=== PATIENT | female | born 1985 | race Caucasian/White ===

== ENCOUNTER 2020-04-21 14:22 | Emergency (ER) | payer MEDICAID, OTHER ==
[2020-04-21 14:57] VITALS: BP 119/69
[2020-04-21] MEDS ORDERED: BUFFERED LIDOCAINE 10 ML SYRINGE SUBQ STA (16:07)
--- NOTE | 2020-04-21 16:23 | ED Physician Documentation ---
History of Present Illness - Stated complaint Stated Complaint: WOUND ON SHOULDER - Chief complaint Chief Complaint: Wound - History obtained from History obtained from: Patient - Additonal information Additional information: 34-year-old female presents the emergency department with 4 days of what she believes is a right axillary abscess. She reports that it started as a pimple but has gotten progressively larger and more painful. Today it began having a small amount of purulent drainage. She does report a history of abscesses in the past also in the right axilla. She has had no fevers. Tetanus is up-to-date. PD PAST MEDICAL HISTORY - Past Medical History Past Medical History: Yes - Past Surgical History Past Surgical History: No - Present Medications Home Medications: Ambulatory Orders Medication Instructions Recorded Confirmed Ibuprofen [Motrin] 400 mg PO Q8H PRN 01/08/15 01/08/15 Cephalexin 500 mg PO Q6HR #39 capsule 01/09/15 HYDROcod/ACETAM 5/325 [Vicodin 1 - 2 ea PO Q6H PRN #15 tablet 01/09/15 5/325] Sulfamethoxazole/Trimethoprim 1 each PO BID #19 tablet 01/09/15 [Bactrim Ds Tablet] Hydrocodone/Acetaminophen [[place] 1 each PO BID PRN #5 tablet 04/21/20 5-325 Tablet] Sulfamethox/Trimeth 800/160 1 each PO BID #14 tablet 04/21/20 [Bactrim Ds 800/160] - Allergies Allergies/Adverse Reactions: Allergies Allergy/AdvReac Type Severity Reaction Status Date / Time No Known Drug Allergies Allergy Verified 10/13/12 12:38 - Social History Does the pt smoke?: Yes Smoking Status: Current every day smoker Does the pt drink ETOH?: No Does the pt have substance abuse?: No - Immunizations Immunizations are current?: Yes - POLST Patient has POLST: No PD ED PE EXPANDED - General General: Alert, No acute distress, Well developed/nourished - Extremities Extremities: Other (1 x 4 cm area of induration without fluctuance noted in the right lower axilla.) Results - Vitals Vitals: Vital Signs - 24 hr 04/21/20 14:52 Temperature 36.9 C Heart Rate 77 Respiratory 14 Rate Blood Pressure 119/69 O2 Saturation 100 Oxygen O2 Source Room air Procedures - Abscess I&D (location) right axilla Preparation: Betadine, Lidocaine 1% Incision: Incised with scalpel, Purulent drainage, Loculations broken, Irrigated, Packed Other: Pt tolerated well, Antibiotic prescribed PD MEDICAL DECISION MAKING - ED course Complexity details: re-evaluated patient, considered differential, d/w patient ED course: 34-year-old female presents to the emergency department for evaluation of 4 days of right axilla abscess. Initially began as a small pimple that has slowly spread to become a large area of erythema and induration. The no fluctuance was felt with palpation incision and drainage did yield a moderate amount of purulent fluid. A culture was obtained. We will start her on Bactrim for suspected MRSA and will have her return in 48 hours for wound check if not better. Patient advised to have the packing removed in 24 to 48 hours. Departure - Departure Disposition: 01 Home, Self Care Clinical Impression: Abscess of axilla, right Condition: Stable Record reviewed to determine appropriate education?: Yes Instructions: ED Abscess IandD Prescriptions: Sulfamethox/Trimeth 800/160 [Bactrim Ds 800/160] 1 each PO BID #14 tablet Hydrocodone/Acetaminophen [[place] 5-325 Tablet] 1 each PO BID PRN #5 tablet PRN Reason: Pain Comments: Blanca the abscess has been drained. However you do need to start taking the antibiotics. With the antibiotics I would expect improved pain swelling and redness over the next 36 to 48 hours. If not improving or getting worse please return to the emergency department. I have placed a small amount of shoestring packing into the abscess. This should be removed in 24 to 48 hours. If you are unable to remove it at home it may be done at any urgent care or on a return visit to the emergency department. I do recommend that you take ibuprofen with food for pain. For severe pain I have prescribed a limited amount of [place]. Please do not drive if taking this it may make you unable to properly drive.
[2020-04-21] MEDS ORDERED: SULFAMETH/TRIMETH DS 800/160 MG TABLET PO STA (16:24)
== END 2020-04-21 16:45 | disposition home or self-care (01) ==
LOC: ED 14:22
DX: L02.411 Cutaneous abscess of right axilla (principal); F17.200 Nicotine dependence, unspecified, uncomplicated
CPT/HCPCS: 10061; 87070; 87181; 87205; 99281; 99283; A9270

== ENCOUNTER 2020-04-25 11:19 | Emergency (ER) | payer OTHER ==
--- NOTE | 2020-04-25 12:46 | ED Physician Documentation ---
History of Present Illness - Stated complaint Stated Complaint: FEMALE - Chief complaint Chief Complaint: General - History obtained from History obtained from: Patient - History of Present Illness Timing: Today Pain level max: 5 Pain level now: 4 - Additonal information Additional information: 34 year old female states she was wiping today and has a skin tear to the vagina. States recently treated for a yeast infection. Was also on bactrim recently for an abscess. no itching, no drainage. Review of Systems Constitutional: denies: Fever, Chills GI: denies: Vomiting, Diarrhea Musculoskeletal: denies: Neck pain, Back pain Neurologic: denies: Headache PD PAST MEDICAL HISTORY - Past Medical History Past Medical History: No - Past Surgical History Past Surgical History: No - Present Medications Home Medications: Ambulatory Orders Medication Instructions Recorded Confirmed Ibuprofen [Motrin] 400 mg PO Q8H PRN 01/08/15 01/08/15 Cephalexin 500 mg PO Q6HR #39 capsule 01/09/15 HYDROcod/ACETAM 5/325 [Vicodin 1 - 2 ea PO Q6H PRN #15 tablet 01/09/15 5/325] Sulfamethoxazole/Trimethoprim 1 each PO BID #19 tablet 01/09/15 [Bactrim Ds Tablet] Hydrocodone/Acetaminophen [[place] 1 each PO BID PRN #5 tablet 04/21/20 5-325 Tablet] Sulfamethox/Trimeth 800/160 1 each PO BID #14 tablet 04/21/20 [Bactrim Ds 800/160] Fluconazole [Diflucan] 150 mg PO DAILY #1 tablet 04/25/20 clindamycin HCL [Cleocin HCl] 300 mg PO Q6H #12 capsule 04/25/20 - Allergies Allergies/Adverse Reactions: Allergies Allergy/AdvReac Type Severity Reaction Status Date / Time No Known Drug Allergies Allergy Verified 04/25/20 11:36 - Living Situation Living Situation: reports: With family Living Arrangement: reports: At home - Social History Does the pt smoke?: Yes Smoking Status: Current every day smoker Does the pt drink ETOH?: No Does the pt have substance abuse?: No - Immunizations Immunizations are current?: Yes - POLST Patient has POLST: No PD ED PE NORMAL - Vitals Vital signs reviewed: Yes - General General: Alert and oriented X 3, No acute distress - HEENT HEENT: Moist mucous membranes - Neck Neck: Supple, no meningeal sign - Cardiac Cardiac: RRR - Respiratory Respiratory: No respiratory distress, Clear bilaterally - Derm Derm: Warm and dry - Neuro Neuro: Alert and oriented X 3 PD ED PE EXPANDED - Female 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 We will give her Diflucan for the yeast infection. We will have her stop the Bactrim as this could be contributing to her symptoms. The abscess in the right axilla and appears to be healing quite well, will change to clindamycin for the final 3 days of antibiotics. Patient is otherwise well- appearing, nontoxic. Afebrile. Patient counseled regarding signs and symptoms for which I believe and urgent re-evaluation would be necessary. Patient with good understanding of and agreement to plan and is comfortable going home at this time This document was made in part using voice recognition software. While efforts are made to proofread this document, sound alike and grammatical errors may occur. Departure - Departure Disposition: 01 Home, Self Care Clinical Impression: Skin tear, Vaginal candidiasis Condition: Good Instructions: ED Abscess IandD, ED Avulsion Dermal, ED Vaginal Infec Fungal May Follow-Up: your,doctor in 1 week [Other] Prescriptions: clindamycin HCL [Cleocin HCl] 300 mg PO Q6H #12 capsule Fluconazole [Diflucan] 150 mg PO DAILY #1 tablet Comments: The bactrim may be contributing to your symptoms, so stop that and we will change you to clindamycin. You were given a dose of Diflucan today, if at the end of the antibiotic treatment you feel like you have a yeast infection, you can take the other pill of Diflucan. Return if you worsen. Follow-up with your doctor for further care. The glue will fall off on its own in a few days.
[2020-04-25 12:59] VITALS: BP 99/65
[2020-04-25] MEDS ORDERED: FLUCONAZOLE 100 MG TABLET PO STA (12:59)
[2020-04-25] MEDS ORDERED: CLINDAMYCIN 150 MG CAPSULE PO STA (12:59)
== END 2020-04-25 13:44 | disposition home or self-care (01) ==
LOC: ED 11:19
DX: S31.41XA Laceration without foreign body of vagina and vulva, initial encounter (principal); X58.XXXA Exposure to other specified factors, initial encounter; B37.3 Candidiasis of vulva and vagina; F17.200 Nicotine dependence, unspecified, uncomplicated
CPT/HCPCS: 99282; 99284; A9270